=== PATIENT | female | born 1945 | race Caucasian/White ===

== ENCOUNTER 2016-10-02 08:58 | Day surgery (SDC) | payer OTHER ==
[2016-09-19 12:58] VITALS: BMI 35.6
[2016-10-02] MEDS ORDERED: ALBUTEROL SO4 6.7 GM HFA INHALER IH ONE (10:18)
[2016-10-02] MEDS ORDERED: MIDAZOLAM HCL 2 MG/2 ML SINGLE DOSE VIAL ONE (10:19)
[2016-10-02] MEDS ORDERED: PROPOFOL 20 ML ONE (10:19)
[2016-10-02 11:31] VITALS: TEMP 98.1
[2016-10-02 12:09] VITALS: BP 118/65; PULSE 89
--- NOTE | 2016-10-03 09:45 | OP ---
DATE OF OPERATION: 10/02/2016 PREOPERATIVE DIAGNOSIS: Right carpal tunnel syndrome. POSTOPERATIVE DIAGNOSIS: Right carpal tunnel syndrome. OPERATIVE PROCEDURE: Right carpal tunnel release. SURGEON: Shailesh Solano MD ANESTHESIA: Local with sedation. COMPLICATIONS: None. ESTIMATED BLOOD LOSS: Minimal. INDICATIONS FOR PROCEDURE: The patient is a 70-year-old female with the above findings, indicated for operative treatment. The risks, benefits, and alternatives were discussed with the patient at length, and proper informed consent was obtained. PROCEDURE: After proper identification of the patient and the correct operative site, the patient was brought to the operating room and placed supine on the operating room table with all prominences well padded. Sedation was given by the anesthesiologist, local anesthesia was given with 2% lidocaine. Right upper extremity was prepped and draped in the usual sterile fashion. Well-padded tourniquet was placed with a sterile prep. Esmarch bandage used to exsanguinate the right upper extremity. Tourniquet inflated to 250 mmHg. A longitudinal incision was made over the proximal aspect of the palm. Incision was taken sharply through the skin with blunt and sharp dissection through subcutaneous tissues. Palmar fascia was divided longitudinally. The transverse carpal ligament along with the distal 4 cm of antebrachial fascia was divided longitudinally under direct visualization with loupe magnification. This provided complete release of the median nerve at the wrist. Wound was irrigated with copious amounts of normal saline. Wound was repaired with a 5-0 nylon suture. Sterile dressings were applied. The patient was reversed from sedation, brought to the recovery room in stable condition. She tolerated the procedure well. Anette FELDMAN/[id number]
== END 2016-10-02 12:10 | disposition home or self-care (01) ==
LOC: FASU 08:58
PROVIDERS: ATTEND Orthopaedic Surgery Hand Surgery
PROC: 01N50ZZ Release Median Nerve, Open Approach (ICD-10-PCS; principal; 2016-10-02 11:01)
DX: G56.01 Carpal tunnel syndrome, right upper limb (principal)

== ENCOUNTER 2016-11-02 10:19 | Emergency (ER) | payer OTHER ==
[2016-11-02 10:43] VITALS: BP 118/74; TEMP 98.6; BMI 36.3
[2016-11-02 10:56] VITALS: PULSE 98
--- NOTE | 2016-11-02 10:58 | PDOC ---
Attending Attestation - Resident Resident Name: Zachariah Yancey - HPI HPI: 11/02/16 12:46 pt presents to the ED after trip and fall down one step yesterday complaining primarily of R wrist and R knee pain - Physicial Exam PE: 11/02/16 12:4 Exam as above. patient is able to weight bear, and has full ROM at the wrist and knee - Medical Decision Making 11/02/16 12:49 Pt presents to the ED complaining of multiple bruises to her wrists and knees after fall yesterday. Able to ambulate without difficulty. No indication for xrays at this time. Will discharge home.
--- NOTE | 2016-11-02 11:56 | PDOC ---
History of Present Illness - General Chief Complaint: Injury Stated Complaint: FELL OFF STAIRS Time Seen by Provider: 11/02/16 10:58 - History of Present Illness Initial Comments: 11/02/16 11:47 70 yo female with h/o right sided carpal tunnel repair, and right sided knee replacement who presents with right ankle and wrist pain. She reports recent fall at 0600 11/02/2016 while ascending two steps from outside and tripped on the step while landing on her outstretched hands into the house. She landed onto the hardwood floor and fell on both her knees. She denies head trauma. Denies recent h/o falls. Pain is partially alleviated with 500 mg Acetaminophen BID and ice therapy. She endorses pain and swelling at BL knees, wrists, and ankles. She denied difficulty ambulating, but endorses pain and popping sensation of right knee. Complains of chronic numbness/tingling of bilateral toes attributed to back pain. + neruoapthic pain of right upper wrist/ hand attributed to recent median nerve decompression. Denies lightheadedness, N/ V, SOB, fevers/chills. Past History - Past Medical History Allergies/Adverse Reactions: Allergies Allergy/AdvReac Type Severity Reaction Status Date / Time cefaclor [From Ceclor] Allergy Severe Rash Verified 11/02/16 10:33 clarithromycin [From Biaxin] Allergy Severe Rash Verified 11/02/16 10:33 Iodinated Contrast Media - Allergy Severe Rash Verified 11/02/16 10:33 Oral and latex Allergy Severe Itching Verified 11/02/16 10:33 levofloxacin [From Levaquin] Allergy Severe Rash Verified 11/02/16 10:33 loracarbef [From Lorabid] Allergy Severe Rash Verified 11/02/16 10:33 Home Medications: Ambulatory Orders Acetaminophen [Tylenol -] 1,000 mg PO DAILY 09/19/16 Albuterol Sulfate Inhaler - [Ventolin Hfa Inhaler -] 2 inh PO ASDIR PRN Allopurinol 300 mg PO DAILY 09/19/16 Cholecalciferol (Vitamin D3) [Vitamin D3] 2,000 unit PO DAILY 09/19/16 Clopidogrel Bisulfate [Plavix -] 75 mg PO HS 09/19/16 Lactobacillus Acidophilus [Probiotic] 1 each PO BID 09/19/16 Losartan Potassium [Cozaar -] 50 mg PO HS 09/19/16 Montelukast Na [Singulair -] 10 mg PO HS 09/19/16 Prednisone 5 mg PO DAILY 09/19/16 Ranitidine HCl [Zantac] 150 mg PO DAILY 09/19/16 Rosuvastatin Calcium [Crestor] 20 mg PO DAILY 09/19/16 Salmeterol/Fluticasone [Advair 500Mcg/50Mcg] 1 inh PO BID 09/19/16 Anemia: No Asthma: Yes (HAS HAD PNEUMONIA MANY TIMES) Cancer: No Cardiac Disorders: No (MURMUR) CVA: No COPD: No CHF: No Dementia: No Diabetes: No GI Disorders: Yes (REFLUX,COLITIS/IBS) Disorders: Yes (KIDNEY STONES,FREQUENT UTI'S,HAS HAD SEPSIS TWICE) HTN: Yes Hypercholesterolemia: Yes Liver Disease: No Seizures: No Thyroid Disease: No - Surgical History Abdominal Surgery: No Appendectomy: No Cardiac Surgery: No Cholecystectomy: No Lung Surgery: No Neurologic Surgery: No Orthopedic Surgery: Yes (LEFT FOOT SURGERY,RIGHT KNEE AND RIGHT HIP REPLACEMENTS ) - Psycho/Social/Smoking Cessation Hx Anxiety: No Suicidal Ideation: No Smoking History: Never smoked Have you smoked in the past 12 months: No Information on smoking cessation initiated: No Hx Alcohol Use: No Drug/Substance Use Hx: No Substance Use Type: None Hx Substance Use Treatment: No Review of Systems - Review of Systems Comments:: 11/02/16 11:56 GENERAL/CONSTITUTIONAL: No fever or chills. No weakness. HEAD, EYES, EARS, NOSE AND THROAT: No change in vision. No ear pain or discharge. No sore throat. CARDIOVASCULAR: No chest pain or shortness of breath RESPIRATORY: No cough, wheezing, or hemoptysis. GASTROINTESTINAL: No nausea, vomiting, diarrhea or constipation. GENITOURINARY: No dysuria, frequency, or change in urination. MUSCULOSKELETAL: +polyarthralgias, and myalgias. + back pain. Denies neck pain/ stiffnes SKIN:+ ecchymosis NEUROLOGIC:+ neuropathic pain. + numbness/tingling in distal extremities. No headache, vertigo, loss of consciousness, or change in strength/sensation. ENDOCRINE: No increased thirst. No abnormal weight change HEMATOLOGIC/LYMPHATIC: No anemia, easy bleeding, or history of blood clots. ALLERGIC/IMMUNOLOGIC: No hives or skin allergy. *Physical Exam - Vital Signs Last Vital Signs Temp Pulse Resp BP Pulse Ox 98.6 F 98 H 20 118/74 97 11/02/16 10:20 11/02/16 10:20 11/02/16 10:20 11/02/16 10:20 11/02/16 10:20 - Physical Exam Comments: 11/02/16 11:59 GENERAL: Awake, alert, and fully oriented, in no acute distress HEAD: No signs of trauma, normocephalic, atraumatic EYES: PERRLA, EOMI, sclera anicteric, conjunctiva clear ENT: Auricles normal inspection, hearing grossly normal, nares patent, oropharynx clear without exudates. Moist mucosa NECK: Normal ROM, supple, no lymphadenopathy, JVD, or masses LUNGS: No distress, speaks full sentences, clear to auscultation bilaterally HEART: Regular rate and rhythm, normal S1 and S2, no murmurs, rubs or gallops, peripheral pulses normal and equal bilaterally. ABDOMEN: Soft, nontender, normoactive bowel sounds. No guarding, no rebound. No masses EXTREMITIES: Ecchymosis present over BL knees, ankles, and wrists. Incision scar present on medial palmar aspect of right hand.5/5 gross motor stregth BL UE and BL LE. + fluid collection present over right sided lateral malleolus. Medial and lateral malleolus nontender to palpation bilaterallty. Base of 5th metatarsal nontender to palpation bilaterally.Patient is able to bear weight on BL LE. Adequate gait with normal rise and adequate stride lenght. Absent signs of ataxic or asymmetric gait. Right 1st metacarpal tender to palpation. Absent erythema/abrasions, or hemarthrosis over UE and LE joints. Normal range of motion No clubbing or cyanosis. Knee: BL Negative Melva and posterior drawer test. Right sided incision scar present on patella. Normal laxity BL. Absent Joint effusion BL. NEUROLOGICAL: Cranial nerves II through XII grossly intact. Normal speech, normal gait, no focal sensorimotor deficits SKIN: Warm, Dry, normal turgor, no rashes or lesions noted. Medical Decision Making - Medical Decision Making 11/02/16 12:06 70 yo female who presents with BL knee, ankle, and wrist pain following recent fall while climbing stairs. Patient does not meet criteria for radiography per [facility] ankle rules. Pt. endorses chronic arthralgias, but gross motor strength intact and absent neurovascular comprise throughout. Continue Tylenol and ice as tolerated. Continue to rest and elevate right foot. *DC/Admit/Observation/Transfer Diagnosis at time of Disposition: Ankle sprain, Right wrist sprain - Discharge Dispostion Disposition: HOME Condition at time of disposition: Stable - Patient Instructions Additional Instructions: Continue over the counter tylenol and ice as needed. Elevate right foot. - Attestations Physician Attestion: 11/02/16 12:11 I, Dr. Zachariah Yancey, attest that this document has been prepared under my direction and personally reviewed by me in its entirety. I further attest, that it accurately reflects all work, treatment, procedures and medical decision -making performed by me.
== END 2016-11-02 12:23 | disposition home or self-care (01) ==
LOC: FER 10:19
DX: S93.401A Sprain of unspecified ligament of right ankle, initial encounter (principal); S63.501A Unspecified sprain of right wrist, initial encounter; W10.9XXA Fall (on) (from) unspecified stairs and steps, initial encounter; Y93.89 Activity, other specified; Y92.9 Unspecified place or not applicable; Z96.651 Presence of right artificial knee joint; J45.909 Unspecified asthma, uncomplicated; I10 Essential (primary) hypertension; E78.00 Pure hypercholesterolemia, unspecified; K21.9 Gastro-esophageal reflux disease without esophagitis
CPT/HCPCS: 99282-25

== ENCOUNTER 2019-06-03 11:45 | Emergency (ER) | payer OTHER ==
[2019-06-03] MEDS ORDERED: ALBUTEROL SO4 2.5/IPRATROPIUM 0.5 INH SOL 3 ML VIAL.NEB. NEB ONE ×3 (12:05→12:51)
[2019-06-03] MEDS ORDERED: methylPREDNISolone NA SUCC 125 MG/2 ML VIAL IVPB ONE (12:05)
--- NOTE | 2019-06-03 12:16 | PDOC ---
History of Present Illness - General Chief Complaint: Shortness of Breath Stated Complaint: SHORT OF BREATH Time Seen by Provider: 06/03/19 11:51 History Source: Patient Exam Limitations: No Limitations - History of Present Illness Initial Comments: 06/03/19 12:12 73 y/o female with hx of COPD presents to ER with increase SOB. On Z-pack and placed on Tamiflu yesterday. No fever or chills. No traveling. Has a cough. Taking Prednisone due to PMR. Patient states she has an O2 around 88-89% No oxygen at home. Denies chest pain or back pain. 06/03/19 12:46 Is this a multiple visit Asthma Patient?: No Past History - Past Medical History Allergies/Adverse Reactions: Allergies Allergy/AdvReac Type Severity Reaction Status Date / Time cefaclor [From Ceclor] Allergy Severe Rash Verified 11/02/16 10:33 clarithromycin [From Biaxin] Allergy Severe Rash Verified 11/02/16 10:33 Iodinated Contrast Media Allergy Severe Rash Verified 11/02/16 10:33 [Iodinated Contrast Media - Oral and] latex Allergy Severe Itching Verified 11/02/16 10:33 levofloxacin [From Levaquin] Allergy Severe Rash Verified 11/02/16 10:33 loracarbef [From Lorabid] Allergy Severe Rash Verified 11/02/16 10:33 Home Medications: Ambulatory Orders Acetaminophen [Tylenol -] 1,000 mg PO DAILY 09/19/16 Albuterol Sulfate Inhaler - [Ventolin Hfa Inhaler -] 2 inh PO ASDIR PRN Allopurinol 300 mg PO DAILY 09/19/16 Cholecalciferol (Vitamin D3) [Vitamin D3] 2,000 unit PO DAILY 09/19/16 Clopidogrel Bisulfate [Plavix -] 75 mg PO HS 09/19/16 Lactobacillus Acidophilus [Probiotic] 1 each PO BID 09/19/16 Montelukast Na [Singulair -] 10 mg PO HS 09/19/16 Prednisone 17.5 mg PO DAILY 09/19/16 Rosuvastatin Calcium [Crestor] 20 mg PO DAILY 09/19/16 Salmeterol/Fluticasone [Advair 500Mcg/50Mcg] 1 inh PO BID 09/19/16 Albuterol 0.083% Nebulizer Gabriela [Ventolin 0.083% Nebulizer Soln -] 1 neb NEB Q6H PRN 06/03/19 Amlodipine Besylate 5 mg PO HS 06/03/19 Azithromycin [Zithromax -] 250 mg PO UTDICT 06/03/19 Cyanocobalamin [Vitamin B12 -] 1,000 mcg PO DAILY 06/03/19 Famotidine/Ca Carb/Mag Hydrox [Pepcid Complete Tablet Chew] 1 each PO DAILY 10/15 NaCl/Nahco3/Hyaluron Sod/Aloe [Nasogel Nasal [place]] 30 ml NS BID PRN 06/03/19 Nystatin Oral Suspension - [Nystatin Oral Susp 299086 Units/5 ML -] 500,000 units PO BID 06/03/19 Oseltamivir Phosphate [Tamiflu] 75 mg PO DAILY 06/03/19 predniSONE [Deltasone -] 20 mg PO BID #10 tablet 06/03/19 Anemia: No Asthma: Yes (HAS HAD PNEUMONIA MANY TIMES) Cancer: No Cardiac Disorders: No (MURMUR) CVA: No COPD: No CHF: No Dementia: No Diabetes: No GI Disorders: Yes (REFLUX,COLITIS/IBS) Disorders: Yes (KIDNEY STONES,FREQUENT UTI'S,HAS HAD SEPSIS TWICE) HTN: Yes Hypercholesterolemia: Yes Liver Disease: No Seizures: No Thyroid Disease: No - Surgical History Abdominal Surgery: No Appendectomy: No Cardiac Surgery: No Cholecystectomy: No Lung Surgery: No Neurologic Surgery: No Orthopedic Surgery: Yes (LEFT FOOT SURGERY,RIGHT KNEE AND RIGHT HIP REPLACEMENTS ) - Psycho Social/Smoking Cessation Hx Smoking History: Never smoked Have you smoked in the past 12 months: No Hx Alcohol Use: No Drug/Substance Use Hx: No Substance Use Type: None Hx Substance Use Treatment: No Review of Systems - Review of Systems Able to Perform ROS?: Yes Is the patient limited [place] proficient: No Constitutional: No: Chills, Fever HEENTM: No: Throat Pain Respiratory: Yes: Cough, Shortness of Breath, Wheezing. No: Productive cough Cardiac (ROS): No: Chest Pain ABD/GI: No: Nausea, Vomiting All Other Systems: Reviewed and Negative *Physical Exam - Physical Exam General Appearance: Yes: Nourished, Appropriately Dressed. No: Apparent Distress HEENT: positive: EOMI, BRAYAN, Normal ENT Inspection, Normal Voice, Symmetrical, Pharynx Normal Neck: positive: Trachea midline, Normal Thyroid, Supple. negative: Tender, Rigid, Carotid bruit Respiratory/Chest: negative: Chest Tender, Lungs Clear (coarse breath sounds b/l , no wheezing), Normal Breath Sounds, Respiratory Distress Cardiovascular: positive: Regular Rhythm, Regular Rate, S1, S2. negative: Edema , JVD, Murmur Vascular Pulses: Femoral (R): 4+, Femoral (L): 4+, Carotid (R): 4+, Carotid (L) : 4+, Dorsalis-Pedis (R): 4+, Doralis-Pedis (L): 4+ Gastrointestinal/Abdominal: positive: Normal Bowel Sounds, Flat, Soft. negative : Tender, Organomegaly, Pulsatile Mass Lymphatic: negative: Adenopathy, Tenderness, Other Musculoskeletal: positive: Normal Inspection. negative: CVA Tenderness Extremity: positive: Normal Capillary Refill, Normal Inspection, Normal Range of Motion Integumentary: positive: Normal Color, Dry, Warm Neurologic: positive: promotional model II-XII NML intact, Fully Oriented, Alert, Normal Mood/ Affect, Normal Response, Motor Strength 5/5 Heart Score/ECG Review - ECG Intrepretation Rhythm: Regular Rhythm Comment:: 06/03/19 12:47 at 1242 rate 97 NSR no STEMI ED Treatment Course - LABORATORY CBC & Chemistry Diagram: 06/03/19 12:15 06/03/19 12:15 - RADIOLOGY Radiology Studies Ordered: Category Date Time Status CHEST PA & LAT [RAD] Stat Radiology 06/03/19 12:05 Ordered ED Progress Note - Progress Note Progress Note: 06/03/19 12:15 Pt appears to be having a COPD exacerbation will obtain labs EKG and CXR Start Solumedrol and DuoNeb treatment 06/03/19 13:24 Pt is feeling much better. Wishes to go home, does not want to be admitted, risks and benefits discussed with pt. Will increase Prednisone for 3 days Continue Z-pack and Tamiflu If worsen return to ER Pt is in agreement with plan Discharge - Discharge Information Problems reviewed: Yes Clinical Impression/Diagnosis: COPD (chronic obstructive pulmonary disease) Qualifiers: COPD type: unspecified COPD Qualified Code(s): J44.9 - Chronic obstructive pulmonary disease, unspecified Condition: Good Disposition: HOME - Admission No - Follow up/Referral Referrals: Humphrey Raphael [Primary Care Provider] - - Patient Discharge Instructions Patient Printed Discharge Instructions: DI for Chronic Obstructive Pulmonary Disease Additional Instructions: Continue Tamiflu and Z-pack Increase Prednisone to 20 mg 2x/day for 5 days, then go back to current amount daily If worsen return to ER Follow up with PMD - Post Discharge Activity
[2019-06-03 12:24] VITALS: BP 128/76; TEMP 98.8; BMI 36.8
[2019-06-03] MEDS ORDERED: methylPREDNISolone NA SUCC 125 MG/2 ML VIAL ONE (12:35)
[2019-06-03 12:41] LABS: BASO % 0.3 % (0-2.0); HEMATOCRIT 44.9 % (32.4-45.2); HEMOGLOBIN 14.8 GM/dl (10.7-15.3); LYMPH % 8.9 % (8-40); MCH 29.6 pg (25.7-33.7); MEAN CELL VOLUME 89.6 fl (80-96); MONO % 4.9 % (3.8-10.2); NEUT % 85.9 % (42.8-82.8); PLATELET COUNT 258 K/MM3 (134-434); RBC 5.01 M/mm3 (3.60-5.2); RDW 16.3 % (11.6-15.6); WHITE BLOOD COUNT 10.5 K/mm3 (4.0-10.8)
[2019-06-03 12:48] LABS: ALBUMIN 3.7 g/dl (3.4-5.0); BILIRUBIN,TOTAL 0.5 mg/dl (0.2-1); CALCIUM 8.8 mg/dl (8.5-10); CREATININE 0.8 mg/dl (0.55-1.3); POTASSIUM 3.7 mmol/L (3.5-5.1)
[2019-06-03 13:30] VITALS: PULSE 102
--- NOTE | 2019-06-04 12:15 | EKG ---
Test Reason : Blood Pressure : / mmHG Vent. Rate : 097 BPM Atrial Rate : 097 BPM P-R Int : 144 ms QRS Dur : 076 ms QT Int : 348 ms P-R-T Axes : 018 -23 009 degrees QTc Int : 441 ms NORMAL SINUS RHYTHM MINIMAL VOLTAGE CRITERIA FOR LVH, MAY BE NORMAL VARIANT INFERIOR INFARCT (CITED ON OR BEFORE 01-OCT-2016) ABNORMAL ECG WHEN COMPARED WITH ECG OF 01-OCT-2016 13:13, NO SIGNIFICANT CHANGE WAS FOUND Confirmed by TALHA HELM MD ([id number]) on 06/04/2019 12:15:35 PM Referred By: JOYCE RAHMAN Confirmed By:TALHA HELM MD
== END 2019-06-03 13:39 | disposition home or self-care (01) ==
LOC: FER 11:45
PROC: 3E0F7GC Introduction of Other Therapeutic Substance into Respiratory Tract, Via Natural or Artificial Opening (ICD-10-PCS; principal; 2019-06-03)
PROC: 3E033GC Introduction of Other Therapeutic Substance into Peripheral Vein, Percutaneous Approach (ICD-10-PCS; 2019-06-03)
DX: J44.9 Chronic obstructive pulmonary disease, unspecified (principal); Z88.8 Allergy status to other drugs, medicaments and biological substances; Z91.040 Latex allergy status; Z91.041 Radiographic dye allergy status
CPT/HCPCS: 36415; 71046-TC-FY; 80053; 84484; 85025; 93005; 99284-25

== ENCOUNTER 2020-02-06 12:59 | Emergency (ER) | payer OTHER ==
--- NOTE | 2020-02-06 13:37 | TELE ---
HPI Do you have fever,cough or shortness of breath?: Yes - General Reason For Visit: COVID-19 TEST History Source: Patient (74-year-old female with history of asthma COPD and hypertension presents to telehealth clinic. Patient states is currently with arthralgia mouth myalgia and a low-grade temp of 99.5 and wants to be tested for COVID.) Exam Limitations: No Limitations - History of Present Illness Associated Symptoms: reports: denies symptoms Past History - Travel History Traveled outside of the country in the last 30 days: No Close contact w/someone who was outside of country & ill: No - Medical History Allergies/Adverse Reactions: Allergies Allergy/AdvReac Type Severity Reaction Status Date / Time cefaclor [From Ceclor] Allergy Severe Rash Verified 07/19/19 03:54 clarithromycin [From Biaxin] Allergy Severe Rash Verified 07/19/19 03:54 Iodinated Contrast Media Allergy Severe Rash Verified 07/19/19 03:54 [Iodinated Contrast Media - Oral and] latex Allergy Severe Itching Verified 07/19/19 03:54 levofloxacin [From Levaquin] Allergy Severe Rash Verified 07/19/19 03:54 loracarbef [From Lorabid] Allergy Severe Rash Verified 07/19/19 03:54 Home Medications: Ambulatory Orders Acetaminophen [Tylenol .Extra-Strength -] 1,000 mg PO DAILY 09/19/16 Albuterol Sulfate Inhaler - [Ventolin HFA Inhaler -] 2 inh PO ASDIR PRN 09/19/16 Allopurinol 300 mg PO DAILY 09/19/16 Cholecalciferol (Vitamin D3) [Vitamin D3] 2,000 unit PO DAILY 09/19/16 Clopidogrel Bisulfate [Plavix -] 75 mg PO HS 09/19/16 Lactobacillus Acidophilus [Probiotic] 1 each PO BID 09/19/16 Montelukast Na [Singulair -] 10 mg PO HS 09/19/16 Rosuvastatin Calcium [Crestor] 20 mg PO DAILY 09/19/16 Salmeterol/Fluticasone [Advair 500Mcg/50Mcg -] 1 inh PO BID 09/19/16 Albuterol 0.083% Nebulizer Gabriela [Ventolin 0.083% Nebulizer Soln -] 1 neb NEB Q6H PRN 06/03/19 Amlodipine Besylate 5 mg PO HS 06/03/19 Cyanocobalamin [Vitamin B12 -] 1,000 mcg PO DAILY 06/03/19 Famotidine/Ca Carb/Mag Hydrox [Pepcid Complete Tablet Chew] 1 each PO DAILY 10/15 NaCl/Nahco3/Hyaluron Sod/Aloe [Nasogel Nasal [place]] 30 ml NS BID PRN 06/03/19 Nystatin Oral Suspension - [Nystatin Oral Susp 788332 Units/5 ML -] 500,000 units PO BID 06/03/19 predniSONE [Deltasone -] 15 mg PO DAILY 07/19/19 Amoxicillin - [Amoxicillin 500mg Capsule -] 500 mg PO TID #21 capsule 07/21/19 Anemia: No Asthma: Yes (HAS HAD PNEUMONIA MANY TIMES) Cancer: No Cardiac Disorders: No (MURMUR) CVA: No COPD: No CHF: No Dementia: No Diabetes: No GI Disorders: Yes (REFLUX,COLITIS/IBS) Disorders: Yes (KIDNEY STONES,FREQUENT UTI'S,HAS HAD SEPSIS TWICE) HTN: Yes Hypercholesterolemia: Yes Liver Disease: No Seizures: No Thyroid Disease: No - Surgical History Abdominal Surgery: No Appendectomy: No Cardiac Surgery: No Cholecystectomy: No Lung Surgery: No Neurologic Surgery: No Orthopedic Surgery: Yes (LEFT FOOT SURGERY,RIGHT KNEE AND RIGHT HIP REPLACEMENTS) - Psycho-Social/Smoking History Patient Lives Alone: No Lives with/in: spouse/SO Smoking History: Never smoked Have you smoked in the past 12 months: No Review of Systems - Review of Systems Able to Perform ROS?: Yes Limited [place] proficient: Yes Constitutional: No: Symptoms Reported HEENTM: No: Symptoms Reported Respiratory: No: Symptoms reported Cardiac (ROS): No: Symptoms Reported ABD/GI: No: Symptoms Reported : No: Symptoms Reported Musculoskeletal: No: Symptoms Reported Integumentary: No: Symptoms Reported Neurological: No: Symptoms reported *Physical Exam - Physical Exam General Appearance: Yes: Nourished HEENT: positive: EOMI Respiratory/Chest: negative: Respiratory Distress Extremity: positive: Normal Inspection Integumentary: positive: Normal Color Neurologic: positive: Motor Strength 5/5 (Ambulatory) - Medical Decision Making 02/06/20 13:36 Chief complaint: Patient requesting COVID testing. Patient is currently asymptomatic. Exam: Limited but otherwise normal PE. Plan: Coid test ordered along with influenza Discharge Diagnosis at time of Disposition: Encounter for laboratory testing for COVID-19 virus - Referrals - Patient Instructions - Discharge Disposition: HOME Condition at time of Disposition: Good
== END 2020-02-06 13:37 | disposition home or self-care (01) ==
LOC: JVIRT 12:59
DX: Z11.59 Encounter for screening for other viral diseases (principal)
CPT/HCPCS: C9803; Q3014-GT; U0003